=== PATIENT | female | born 1985 | race Caucasian/White ===

== ENCOUNTER → 2017-04-09 | Outpatient (CLI) | payer MEDICAID | LOC: FIMAGING 11:33 | PROVIDERS: ATTEND Advanced Practice Midwife | DX: Z34.92 Encounter for supervision of normal pregnancy, unspecified, second trimester (principal); Z3A.19 19 weeks gestation of pregnancy; Z87.42 Personal history of other diseases of the female genital tract ==

== ENCOUNTER 2017-08-29 11:19 | Inpatient (IN) | payer MEDICAID ==
[2017-08-29] MEDS ORDERED: EPSOM SALT 454 GM TP PRN (11:50)
[2017-08-29] MEDS ORDERED: OLIVE OIL 118 ML BTL MISC PRN (11:50)
[2017-08-29] MEDS ORDERED: MISOPROSTOL 200 MCG TAB PR PRN (11:50)
[2017-08-29] MEDS ORDERED: LR 1,000 ML IV PRN (11:50)
[2017-08-29] MEDS ORDERED: OXYTOCIN 20 UNIT in LR 1,000 ML IV PRN (11:50)
[2017-08-29] MEDS ORDERED: IBUPROFEN 600 MG TAB PO PRN (11:50)
--- NOTE | 2017-08-29 12:10 | PDMN ---
Medical Necessity Medical necessity: Pt meets IP criteria per MD; admit for labor & delivery; per order 08/29/17
[2017-08-29 12:33] LABS: PLATELET COUNT 144 10^3/uL (150-400)
--- NOTE | 2017-08-29 13:54 | PDGENHP ---
History and Physical History and Physical: HPI: Patient is a 31 yo G 5 P 3 that presents to L&D at 39.4 weeks EGA with c/o of SROM at approximately 10 am-mod amt clear fluid. She has had some continued leaking fluid, but not wearing pad. Underwear wet. No obvious fluid leaking visable. Her baby has been active, she denies painful contractions or vaginal bleeding. Transferred care to [facility] from the center due to insurance change. EDC: 09/01/2017 which is based on sure LMP: 11/25/2017 Her is complicated by: late transfer of care, h/o precipitous labors (<3 hours X2), h/o hemorrhoids (surgery X2) Review of Systems: Constitutional: Denies any fever, chills, or fatigue HEENT: denies any visual changes, difficulty swallowing, hearing loss Cardiovascular: Denies any chest pain, palpitations, leg swelling Respiratory: denies any cough, wheezing, or shortness of breathe GI: Denies any nausea, vomiting, diarrhea, constipation : denies any dysuria, urgency, frequency, vaginal bleeding Musculoskeletal: denies any muscle or bone pain Skin: denies any rashes Neuro: denies any headache, seizures, lightheadedness, dizziness, or loss of consciousness Psychiatric: denies any depression, anxiety, or SI/HI thoughts HISTORY: Previous OB history: - 3 previous SVDs - 2 were precipitous, the other was 5 hours. 1 TAB in 2005. Past medical history: h/o anxiety (not currently treated), h/o hemorrhoids ( surgery X2) Past surgical history: hemorrhoid surgeryX2, Bartholin cyst 2015 Medications: PNV Allergies (list reaction): NKDA LABS: Rh: O pos ABS: Neg Rubella: Immune HbsAg: NR HIV: NR VDRL: NR 1hr: 96 GC: Neg Chlamydia: Neg Pap: Normal -2016 GBS: neg BMI: (prepreg) 26 PHYSICAL EXAM: Constitutional: WN, A&Ox3 HEENT: normocephalic atraumatic, supple Heart: RRR, no murmur Chest: CTA-B Abdomen: Soft, nontender, gravid SVE: deferred. Sterile spec done to verify SROM - nitrazine pos, neg pooling, neg ferning. Amnisure positive. Extremities: sml lower ext edema, negative giovany's sign Neuro: grossly normal Psych: normal affect assessment: Reassuring FHTs, category 1- baseline 135 +accels, no decels, moderate variability Contractions: toco - irregular mild contractions patient is not aware of Assessment: 1) 31 yo G 5 P 3 with IUP@ 39.4 weeks EGA 2) SROM at 10 am 3) GBS neg 4) Cat 1 FHR tracing 5) Patient would like to wait to start pitocin to see if labor will start on it 's own Plan: 1) Patient given option to stay or discharge home. Would like to go home with precautions and instructions to return when she is feeling regular contractions , if noticing decreased movement, change in color of fluid (green), vaginal bleeding, fever. Verbalizes understanding of instructions and agrees with POC.
== END 2017-08-29 14:00 | disposition home or self-care (01) | DRG 782 ==
LOC: FLD 11:19
PROVIDERS: ADMIT Obstetrics & Gynecology; ATTEND Obstetrics & Gynecology
DX: O42.92 Full-term premature rupture of membranes, unspecified as to length of time between rupture and onset of labor (principal); Z87.59 Personal history of other complications of pregnancy, childbirth and the puerperium; Z3A.39 39 weeks gestation of pregnancy

== ENCOUNTER 2017-08-29 22:38 | Inpatient (IN) | payer MEDICAID ==
--- NOTE | 2017-08-29 23:43 | GHP ---
[f rep st] HISTORY AND PHYSICAL DATE OF ADMISSION: 08/29/2017 ADMITTING DIAGNOSIS: Intrauterine at 39-4/7 weeks' gestation with spontaneous rupture of t he membranes. HISTORY OF PRESENT ILLNESS: The patient is a 31-year-old 5, para 3-0-1-3, with a last menstr ual period of 11/25/2016, and an EDC of 09/01/2017, which was confirmed by ultrasound. She has had p renatal care with [facility] since transfer at 37 weeks. She had an insurance change and w ants to deliver at [facility] where she has delivered her other babies. She had the majority of her p renatal care at [facility], but had an insurance change and it was not going to be covered there and she had her first trimester care at [place]. Her significant risk factors are hist ory of rapid labor and significant history of hemorrhage. She has had 2 hemorrhoid surgeries in the past, and hemorrhoids are worsening in the . No other significant risk factors. Edda purvis initially had an episode of leakage of clear fluid at 10 a.m. She came into Labor and Deliver y because of her history of rapid deliveries. She was assessed, found to have positive rupture of me mbranes, but her cervix was not checked. She had a category 1 reactive tracing and irregular contrac tions, and patient opted to go home to anticipate increasing contractions. Over the last hour, she h as had increasing contractions, increasing in intensity, and minimal continued leakage of fluid. On examination, heart tones are in the 140s, reactive. She is having moderate variability, some e morro decels. Her cervix is 3 cm, 80%, -2, and she had a forebag, which I performed an amniotomy and she had clear fluid. Patient wishes to have expectant management of labor and natural labor. PAST OBSTETRICAL HISTORY: In 2005, she had an elective medical termination without complication. In November of 2011, she had a viable female, 6 pounds 3 ounces, vaginal delivery, 3 hours of labor. In [place] 2012, she had another viable female, 7 pounds 3 ounces, less than 3 hours of labor, and in J santi2014 another viable female, 7 pounds 12 ounces, 5 hours of labor, and this is her fifth pregna ncy. PAST GYNECOLOGICAL HISTORY: She had menarche at age 11, intervals every 28 days, length 7 days. Jenae e and regular last menstrual period in November 2016. Past gynecological history is significant for abno rmal Paps with a LEEP in 2010. She has had normal Paps since and term since. No other his tory of any STDs. PAST MEDICAL HISTORY: No significant past medical history. PAST SURGICAL HISTORY: [place] tooth extraction, 2 hemorrhoid surgeries, and a Bartholin cyst I and D in 2015. FAMILY HISTORY: Paternal grandfather of a myocardial infarction. Maternal grandmother and mate rnal grandfather have hypertension. Maternal grandmother has varicose veins. Her mother has asthma. Maternal grandmother has migraines, and maternal grandfather has diabetes. SOCIAL HISTORY: She is single, but in a relationship with a partner. She lives with him and her 3 d aughters. 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 She denies tobacco, alcohol, and drug u se. REVIEW OF SYSTEMS: Negative except for pertinent positives of above. OBJECTIVE: VITAL SIGNS: Afebrile. Vital signs are stable. 140s with early decels, moderate variab ility, category 1. Contractions every 3 minutes. Cervix 3, 80%, -2. AROM for forebag for clear flu id. ASSESSMENT AND PLAN: A 31-year-old 5, para 3-0-1-3, who is 39-4/7 weeks' gestation in active labor with spontaneous rupture of the membranes. Patient will have expectant labor management. Exp ect spontaneous vaginal delivery. /[id number]/MODL
[2017-08-29] MEDS ORDERED: OXYTOCIN 20 UNIT in LR 1,000 ML IV PRN (23:54)
[2017-08-29] MEDS ORDERED: TERBUTALINE SULFATE 1 MG/ML VIAL IV PRN (23:54)
[2017-08-29] MEDS ORDERED: EPSOM SALT 454 GM TP PRN (23:54)
[2017-08-29] MEDS ORDERED: OLIVE OIL 118 ML BTL MISC PRN (23:54)
[2017-08-29] MEDS ORDERED: LR 1,000 ML IV PRN (23:54)
[2017-08-29] MEDS ORDERED: MISOPROSTOL 200 MCG TAB PR PRN (23:54)
[2017-08-30] MEDS ORDERED: LIDOCAINE 1% 300 MG/30 ML SDV ONE (00:01)
[2017-08-30] MEDS ORDERED: OLIVE OIL 118 ML BTL ONE (00:01)
[2017-08-30] MEDS ORDERED: MISOPROSTOL 200 MCG TAB ONE (00:02)
[2017-08-30 00:25] LABS: PLATELET COUNT 147 10^3/uL (150-400)
[2017-08-30] MEDS ORDERED: PHENYLEPHRINE HCL 100 MCG/ML SYR IVP PRN ×2 (00:43→06:57)
[2017-08-30] MEDS ORDERED: NALOXONE HCL 0.4 MG/ML INJ IVP PRN ×3 (00:43→06:57)
[2017-08-30] MEDS ORDERED: ONDANSETRON 4 MG/2 ML VIAL IVP PRN ×3 (00:43→06:57)
[2017-08-30] MEDS ORDERED: BUPIVACAINE 0.25% 30 ML SDV ONE (00:54)
[2017-08-30] MEDS ORDERED: PHENYLEPHRINE HCL 100 MCG/ML SYR ONE (00:54)
[2017-08-30] MEDS ORDERED: fentaNYL 100 MCG/2 ML INJ ONE ×2 (00:55→05:17)
[2017-08-30] MEDS ORDERED: fentaNYL 200 MCG, BUPIVACAINE 0.5% 20 ML in NS 100 ML EP SCH (01:00)
[2017-08-30] MEDS ORDERED: LR 500 ML IV SCH (01:00)
[2017-08-30] MEDS ORDERED: fentaNYL 2MCG/ML/BUP 0.1% RTU 100 ML EP SCH (01:00)
--- NOTE | 2017-08-30 01:38 | PREANESOB ---
Obstetric Pre-Anesthesia Info - General Info Proposed Procedure: labor - Info Status: Full Term Monitors: External FHR Pattern: Reassuring - Labor Status Labor Epidural: Proposed Anesthesia ROS: negative review of systems Allergies/Adverse Reactions: Allergy/AdvReac Type Severity Reaction Status Date / Time No Known Allergies Allergy Unverified 12/03/11 06:37 Home Medications: Medication Instructions Recorded 1 tab PO DAILY 04/14/13 Herbals/Supplements -Info Only 08/29/17 Visit Medications: Generic Name Dose Route Start Last Admin Trade Name Freq PRN Reason Stop Dose Admin Diphenhydramine HCl 25 - 50 mg 08/30/17 00:43 Benadryl Injection IVP 02/26/18 00:42 Q6HRS PRN Itching Ephedrine Sulfate 10 mg 08/30/17 00:43 Ephedrine Sulfate IV 02/26/18 00:42 .Q2M PRN Hypotension Lactated Ringer's 1,000 mls @ 0 mls/hr 08/29/17 23:54 Lr IV 08/30/17 23:53 PRN PRN SEE PROTOCOL CONDITIONS Protocol Per Protocol Oxytocin 20 unit/ Lactated 1,002 mls @ 150 mls/hr 08/29/17 23:54 Ringer's IV PRN PRN Post- bleeding Lactated Ringer's 500 mls @ 0 mls/hr 08/30/17 01:00 Lr IV 02/26/18 00:59 CONT PATRICK As Directed Fentanyl 200 mcg/ Bupivacaine 100 mls @ 0 mls/hr 08/30/17 01:00 HCl 20 ml/ Sodium Chloride EP 09/09/17 00:59 CONT PATRICK Protocol As Directed Ibuprofen 600 mg 08/29/17 23:54 Motrin PO 02/25/18 23:53 Q6HRS PRN post , inflammation Magnesium Sulfate 454 gm 08/29/17 23:54 Epsom Salt TP 02/25/18 23:53 Q1H PRN perineal discomfort Misoprostol 800 - 1,000 mcg 08/29/17 23:54 Cytotec DC ONCE PRN Vaginal Atony/Bleeding Naloxone HCl 0.4 mg 08/30/17 00:43 Narcan IVP 02/26/18 00:42 PRN PRN Respiratory depression [place] Oil 118 ml 08/29/17 23:54 Sweet Oil MISC 02/25/18 23:53 ONCE PRN perineal massage Ondansetron HCl 4 mg 08/30/17 00:43 Zofran IVP 08/31/17 00:42 Q4HRS PRN Nausea/Vomiting, Can't Take PO Phenylephrine HCl 100 mcg 08/30/17 00:43 Neosynephrine IVP 02/26/18 00:42 .Q2M PRN Hypotension Terbutaline Sulfate 0.25 mg 08/29/17 23:54 Brethine IV 02/25/18 23:53 ONCE PRN Tachysystole Discontinued Medications Generic Name Dose Route Start Last Admin Trade Name Freq PRN Reason Stop Dose Admin Bupivacaine HCl Confirm 08/30/17 00:54 Sensorcaine 0.25% Sdv Administered 08/30/17 00:55 Dose 30 ml .ROUTE .STK-MED ONE Fentanyl Confirm 08/30/17 00:55 Sublimaze Administered 08/30/17 00:56 Dose 100 mcg .ROUTE .STK-MED ONE Lidocaine HCl Confirm 08/30/17 00:01 Lidocaine Hcl 1% Administered 08/30/17 00:02 Dose 300 mg .ROUTE .STK-MED ONE Misoprostol Confirm 08/30/17 00:02 Cytotec Administered 08/30/17 00:03 Dose 1,000 mcg .ROUTE .STK-MED ONE [place] Oil Confirm 08/30/17 00:01 Sweet Oil Administered 08/30/17 00:02 Dose 118 ml .ROUTE .STK-MED ONE Phenylephrine HCl Confirm 08/30/17 00:54 Neosynephrine Administered 08/30/17 00:55 Dose 1,000 mcg .ROUTE .STK-MED ONE - Anesthesia History Response to Local Anesthetics: Normal Anesthesia & Operative History: No Prior Problems Family Anesthesia History: Negative - Social History Substance Use/Abuse: Denies - Focused Exam Neck exam: increased neck circumference Mallampati Score: Class 2 Mouth exam: normal dental/mouth exam Pulmonary: no respiratory distress Cardiovascular: regular rate and rhythym Labs: 08/29/17 00:05 Patient ABO/Rh O POSITIVE 08/30/17 00:05 - Plan Anesthetic Plan: zurdo Consent Signed and on Chart: Yes Patient/Guardian Understands and Agrees to Plan: Yes Urgent/Emergent Case: Shannon layne completed preop but documented later for safe timely pt care
--- NOTE | 2017-08-30 02:05 | OBPROG ---
Labor Progress Note Assessment/Plan: Assessment: 31 y/o @ 39 5/7 weeks with SROM in active labor Plan: Will allow baby to passively descend and patient to rest. Re check when she feels the urge to push. status reassuring. 08/30/17 02:04 Subjective/Intrapartum Course: 08/30/17 02:02 Pt comfortable with her epidural now. Objective: 08/29/17 00:05 Patient ABO/Rh O POSITIVE 08/30/17 00:05 - SVE Dilation (cm): 9 Effacement (%): 90 Station: 0 Membranes: AROM Amniotic Fluid Color: Clear - Contraction Pattern Assessment Current Contraction Pattern: Regular (Q 2-3) - FHR Assessment Castellano FHR (bpm): 140 FHR Pattern Variability: Moderate FHR Category: 1 - Procedures Non-surgical Procedures: Amniotomy - AP Antepartum Course: 08/30/17 02:03 Transfer of care @ 37 weeks, PNC @ [facility], H/o precipitous labor, Hemorrhoid ICD10 Worksheet Patient Problems: Problems Problem Status Onset (normal spontaneous vaginal delivery) Acute
[2017-08-30] MEDS ORDERED: FAMOTIDINE 20 MG/NACL/50 ML BAG IV ONE (04:45)
[2017-08-30] MEDS ORDERED: PHENYLEPHRINE 10 MG/ML SDV ONE (05:15)
[2017-08-30] MEDS ORDERED: LIDOCAINE 2% 5 ML SDV ONE ×2 (05:16)
[2017-08-30] MEDS ORDERED: LIDO/EPI 2% **for epidural** 20 ML SDV ONE (05:16)
[2017-08-30] MEDS ORDERED: morphINE PF 5 MG/10 ML INJ ONE (05:17)
[2017-08-30] MEDS ORDERED: OXYTOCIN 100 UNITS/10 ML VIAL ONE (05:17)
[2017-08-30] MEDS ORDERED: CEFAZOLIN 1 GM/DEXTROSE/50 ML BAG IV ONE (05:27)
[2017-08-30] MEDS ORDERED: ceFAZolin 2 GM in NS 100 ML IV ONE (05:28)
[2017-08-30] MEDS ORDERED: ceFAZolin 2 GM/SWFI 2 GM/20 ML SYR IVP ONE (06:00)
[2017-08-30] MEDS ORDERED: ONDANSETRON 4 MG/2 ML VIAL ONE (06:38)
[2017-08-30] MEDS ORDERED: PROMETHAZINE HCL 25 MG/ML INJ IVP PRN (06:49)
[2017-08-30] MEDS ORDERED: ACETAMINOPHEN 325 MG TAB PO PRN (06:49)
[2017-08-30] MEDS ORDERED: DOCUSATE SODIUM 100 MG CAP PO PRN (06:49)
--- NOTE | 2017-08-30 06:54 | OBDEL ---
Info Type: Primary Presentation at Delivery: Face L&D Analgesia/Anesthesia Type: Epidural GBS+: No - Infant Care Provider Electric Wheelchair Repairer/REPULPING SUPERVISOR: Nkechi Sims - Hospital Course Intrapartum: 08/30/17 02:02 Pt comfortable with her epidural now. Indications for Delivery: Spontaneous Labor, SROM (persistent face presentation , arrest of descent) Vaginal Delivery - Labor and Delivery Onset of Contractions Date: 08/29/17 Onset of Contractions Time: 22:00 Amniotic Fluid Color: Clear Non-surgical Procedures: Amniotomy Cord Gases: Cord Gases Cord Blood PCO2 84.5 mmHg (37-60) H 08/30/17 06:04 Cord Base Excess -24.3 mEq/L (-13.6--3.2) L 08/30/17 06:04 Cord ABG pH 6.89 (7.10-7.37) L 08/30/17 06:04 Cord VBG pH 6.97 (7.20-7.42) L 08/30/17 06:04 Operative Report - Delivery Pre-op Diagnoses: IUP @ 39 weeks, SROM, persistent face presentation, arrest of descent Post-op Diagnoses: same History of Prior Section: No Number of Prior Sections: 0 Nulliparous Prior to Delivery: No Indications for Current Section: Other (Specify) (persistent face presentation) Procedure: Unscheduled Surgeon: Aura Collado Annual Giving Director: Gertrudis Edmondson Anesthesiologist: Ariel Marquez Complications: Other (Specify) (severely bruised face and forehead abrasions, baby is in NICU) Specimen(s)/Path: Placenta IV Fluid (ml): 2,500 EBL: 800 Cord Gases: Cord Gases Cord Blood PCO2 84.5 mmHg (37-60) H 08/30/17 06:04 Cord Base Excess -24.3 mEq/L (-13.6--3.2) L 08/30/17 06:04 Cord ABG pH 6.89 (7.10-7.37) L 08/30/17 06:04 Cord VBG pH 6.97 (7.20-7.42) L 08/30/17 06:04 Assissted Delivery Assisted Delivery Type: Vacuum Station: +2 Pop offs (Total): 1 Pulls (Total): 5 Assisted Delivery Comment: persistent face presentation, kiwi vacuum placed on baby's vertex in attempt to encourage baby to flex head, and descend past pubic symphysis [place] Data GABBIE: 08/31/17 Gestational Age: 39 week(s) and 6 day(s) Castellano Delivery Date: 08/30/17 Delivery Time: 05:57 Sex of Infant: Female [place] Weight (gm): 3432 g Score (1 Min): 1 Score (5 Min): 5 Score (10 Min): 7 ICD10 Worksheet Patient Problems: Problems Problem Status Onset Delivery by section of full-term infant Acute Face presentation of fetus Acute (normal spontaneous vaginal delivery) Acute - ICD10 Problem Qualifiers (1) Face presentation of fetus Qualifiers: Fetus number: single or unspecified fetus Qualified Code(s): O32.3XX0 - Maternal care for face, brow and chin presentation, not applicable or unspecified (2) Delivery by section of full-term infant
[2017-08-30] MEDS ORDERED: HYDROCODONE/APAP 5/325 TAB PO PRN (06:57)
[2017-08-30] MEDS ORDERED: HYDROmorphONE/DILAUDID 2 MG/ML INJ IVP PRN (06:57)
--- NOTE | 2017-08-30 07:02 | POSTANESTH ---
Post Anesthetic Evaluation Cardiovascular Status: Normal, Stable Respiratory Status: Normal, Stable Level of Consciousness/Mental Status: Can Participate in Eval Pain Control: Adequate, Prn Tx Ordered Nausea/Vomiting Control: Adequate, Prn Tx Ordered Complications Possibly Related to Anesthesia: None Noted
[2017-08-30] MEDS ORDERED: MAGNESIUM HYDROXIDE 30 ML UDCUP PO PRN (07:04)
[2017-08-30] MEDS ORDERED: POLYETHYLENE GLYCOL 3350 17 GM PKT PO PRN (07:04)
[2017-08-30] MEDS ORDERED: BISACODYL 10 MG SUPP PR PRN (07:04)
[2017-08-30] MEDS ORDERED: LACTULOSE 20 GM/30 ML UDCUP PO PRN (07:04)
--- NOTE | 2017-08-30 07:39 | GOP ---
[f rep st] OPERATIVE REPORT DATE OF OPERATION: 08/30/2017 SURGEON: Aura Collado MD MANAGER FINE: Gai Edmondson, Certified Nurse assistant professor of nursing. ANESTHESIA: Epidural anesthesia. ANESTHESIOLOGIST: Ariel Maruqez MD PREOPERATIVE DIAGNOSIS: Intrauterine at 39 and 5/7 weeks' gestation with persistent face p resentation and arrest of descent. POSTOPERATIVE DIAGNOSIS: Intrauterine at 39 and 5/7 weeks' gestation with persistent face presentation and arrest of descent. PROCEDURE PERFORMED: Primary lower transverse section. FINDINGS: Viable female with of 1, 5, and 7 and weight of 3432 g. ESTIMATED BLOOD LOSS: 800 cc INDICATIONS: Claudia is a 31-year-old 5, para 3-0-1-3, with an EDC of 09/01/2017, confirmed by ultrasound, who recently transferred to [facility] at 37 weeks. She presented with sponta neous rupture of membranes at 10 a.m. on 08/29. She declined augmentation of labor at that time. Ori branch re-presented at 10 p.m. and her cervix was 3 cm, 80%, and she had a 4 bag of water that was AROM fo r augmentation. She was admitted for labor management. The patient did well with spontaneous progre ssion, received an epidural for pain control, and progressed to fully dilated. She started pushing a nd it was recognized that the patient was in face presentation with mentum anterior. Because the pat ient had 3 prior successful vaginal deliveries and felt that she had good pelvic room, we continued p ushing efforts to attempt to see if baby would flex the head or deliver with a face. After approxima tely 45 minutes of good pushing efforts without significant descent, I verbally counseled the patient for an attempted vacuum extraction because I could place the kiwi vacuum on the baby's vertex to att empt to help flex the head and facilitate delivery. The patient agreed to this and I placed the kiwi vacuum on the baby's vertex using care to avoid the face and help to flex the head and pull with 5 p ushes. The baby did flex the head more, however, the head did not descend again past the pubic symph ysis. We tried 5 pulls with 1 pop-off. After that was unsuccessful, we decided to proceed with oper ative delivery for persistent face presentation and arrest of descent. The patient was counseled for the procedure and she understood the risks and benefits. The risks including bleeding, infection, d amage to internal organs, uterus, tubes, ovaries, bowel, bladder, nerves, blood vessels, ureters, ris k of injury, risk of hemorrhage requiring blood transfusion, hysterectomy, or . She under stood these risks and benefits and agreed to proceed. DESCRIPTION OF PROCEDURE: The patient was taken to the operating room where her epidural was dosed a nd found to be adequate. She was prepped and draped in the dorsal supine position with a leftward ti lt and a Farley catheter was replaced in her bladder. After adequate anesthesia was assured, a transv erse skin incision was made with a scalpel and the incision was carried down to the underlying layer of fascia with the Bovie. The fascia was incised midline and the fascial incision was extended later ally with Elizondo scissors. The superior aspect of the fascial incision was grasped with Sheeba clamps, elevated, and the rectus muscles were dissected off sharply. The rectus muscles were in t he midline and peritoneum was entered sharply. The peritoneal incision was extended superiorly and i nferiorly with good visualization of the bladder. A bladder blade was inserted and the vesicouterine peritoneum was grasped with the pickups and entered sharply with Metzenbaum scissors. The incision was extended laterally and bladder flap was created digitally. The uterus was incised with a knife a nd there was clear amniotic fluid upon entry of the uterine cavity. The baby was in persistent face presentation and the head was flexed and the baby was delivered atraumatically. The cord was clamped and cut. The infant was handed off to the waiting nurse practitioner. Cord blood gas as w ell as cord blood were sent. The placenta was removed manually and the uterus was exteriorized and c leared of all clots and debris. The uterine incision was repaired with 0 Vicryl in a running locked fashion. Second imbricating layer of suture was performed with 0 Vicryl. Small areas of bleeding we re also sutured with 0 Vicryl and good hemostasis was obtained. The uterus was returned to the abdom en. Gutters were cleared of all clots and debris. Reinspection of the uterine incision again assure d hemostasis. The rectus muscles were approximated with 2-0 Vicryl in an inverted mattress fashion. The fascia was closed with #1 Vicryl in a running fashion. Subcutaneous layer was closed with 2-0 V icryl and skin was closed with 4-0 Vicryl. The patient tolerated the procedure well. INSTRUMENT COUNT: Sponge, lap, needle, and instrument counts were correct x3. DISPOSITION: The patient went to the recovery room in good condition. FLUIDS REPLACED: 2500 cc URINE OUTPUT: 200 cc /[id number]/MODL
[2017-08-30] MEDS ORDERED: KETOROLAC 30 MG/1 ML SDV ONE (08:18)
[2017-08-30] MEDS: KETOROLAC 30 MG/1 ML SDV IVP PRN ×3 (08:25→20:55)
--- NOTE | 2017-08-30 11:00 | OBPP ---
Progress Note Assessment/Plan: Assessment:31 yo [id number] about 4 hours post op from primary LTCS due to face presentation. Significant labial edema, R > L, does not appear to be a hematoma. Plan: Continue routine post op cares. Will observe and recheck labia in a bit. 08/30/17 10:56 Subjective/ Course: 08/30/17 11:00 Pt is doing well, is resting comfortably though labia are uncomfortable. Is in good spirits despite her baby just being transferred to [facility]. Objective: 08/29/17 00:05 Patient ABO/Rh O POSITIVE 08/30/17 00:05 Temp Pulse Resp BP Pulse Ox 36.8 C 87 20 110/67 2 L 08/30/17 09:30 08/30/17 09:30 08/30/17 09:30 08/30/17 09:30 08/30/17 09:30 gen - pleasant, NAD abd - soft, fundus firm at umbilicus dressing - c/d/i vulva - significant edema, with R labia 2x size of left, does not extend in to her vagina, a little more firm posteriorly ext - calves nt, 1+ edema Uterine Position/Fundal Height: At Umbilicus Uterine Tone: Firm
[2017-08-30] MEDS: SENNOSIDES/DOCUSATE SODIUM TAB PO SCH ×2 (11:08→20:56)
--- NOTE | 2017-08-30 16:25 | PDMN ---
Medical Necessity Medical necessity: Pt meets IP criteria per MD; admit for labor & delivery; per H&P & order 08/29/17
[2017-08-30] MEDS: IRON POLYSAC/IRON HEME 28 MG TAB PO SCH (20:55)
[2017-08-30] MEDS: HYDROCODONE/APAP 5/325 TAB PO PRN (21:47)
--- NOTE | 2017-08-30 22:28 | OBPP ---
Progress Note Assessment/Plan: Assessment:31 yo [id number] 4 about 4 hours post op from primary LTCS due to face presentation. Significant labial edema, R > L, does not appear to be a hematoma. Plan: Continue routine post op cares. Will observe and recheck labia in a bit. 08/30/17 10:56 08/30/17 22:29 Assessment: 31 yo [id number] approximately 16 hours post op from primary LTCS - due to face presentation. Labial edema significantly improved. Baby doing well in NICU with cooling at [facility]. Plan: Continue routine postop cares. Will leave Farley catheter in overnight, but plan to dc in AM, and get pt ambulating. Anticipate dc to home on Friday 09/01. Subjective/ Course: Doing well, was able to get some rest today. Labial discomfort has decreased significantly. Is in good spirits - has been told her baby girl is doing well. Will be receiving head cooling until 09/02. Has lots of family members who are spending time with her at [facility]. Has been out of bed only to stand today. Was not lightheaded with that. 08/30/17 11:00 Pt is doing well, is resting comfortably though labia are uncomfortable. Is in good spirits despite her baby just being transferred to [facility]. 08/30/17 22:26 Objective: 08/29/17 00:05 Patient ABO/Rh O POSITIVE 08/30/17 00:05 Temp Pulse Resp BP Pulse Ox 36.6 C 89 16 95/58 L 94 08/30/17 20:00 08/30/17 20:00 08/30/17 20:00 08/30/17 20:00 08/30/17 20:00 gen - pleasant, NAD abd - soft, fundus firm and NT u-2 vulva - edema still significant, though nearly symmetric now and approximately 60% small than this morning, and quite soft. Farley catheter still in place. ext = SCDs in place and running, no calf tenderness. Uterine Position/Fundal Height: Umbilicus -2 Uterine Tone: Firm
[2017-08-31] MEDS: HYDROCODONE/APAP 5/325 TAB PO PRN ×5 (02:59→22:37)
[2017-08-31] MEDS: IBUPROFEN 600 MG TAB PO PRN ×4 (02:59→21:19)
[2017-08-31] MEDS: SENNOSIDES/DOCUSATE SODIUM TAB PO SCH ×2 (08:21→21:20)
[2017-08-31] MEDS: IRON POLYSAC/IRON HEME 28 MG TAB PO SCH ×2 (08:21→21:20)
--- NOTE | 2017-08-31 09:09 | OBPP ---
Progress Note Assessment/Plan: Assessment:nipples intact vs wnl anemic iron started ff@u incision well approximated / bandage off/ no ss of infection passing gas mccarthy remains in place will dc today pain well managed labial swelling significantly diminished Plan:PO day 1 expectant management/ encouraged ambulation 08/31/17 09:06 Subjective/ Course: Doing well, was able to get some rest today. Labial discomfort has decreased significantly. Is in good spirits - has been told her baby girl is doing well. Will be receiving head cooling until Mon 09/02. Has lots of family members who are spending time with her at [facility]. Has been out of bed only to stand today. Was not lightheaded with that. 08/30/17 11:00 Pt is doing well, is resting comfortably though labia are uncomfortable. Is in good spirits despite her baby just being transferred to [facility]. 08/30/17 22:26 08/31/17 09:06 Doing well. Denies uncontrolled jewel. Will dc mccarthy today. Passing gas. Pumping Objective: 08/31/17 06:00 Patient ABO/Rh O POSITIVE 08/30/17 00:05 Temp Pulse Resp BP Pulse Ox 36.2 C 85 15 101/66 100 08/31/17 08:46 08/31/17 08:46 08/31/17 08:46 08/31/17 08:46 08/31/17 08:46 Uterine Position/Fundal Height: At Umbilicus Uterine Tone: Firm Physical Exam - Physical Exam General Appearance: WD/WN, alert, no apparent distress Respiratory: chest non-tender, lungs clear Cardiac/Chest: regular rate, rhythm Abdomen: hypoactive bowel sounds Extremities: normal range of motion, Andrade's sign (negative bilaterally) DTR- Lower Extremities: Knee (R): 1+, Knee (L): 1+ (no clonus) Skin: normal color, warm/dry Neuro/Psych: no motor/sensory deficits, alert, normal mood/affect, oriented x 3
[2017-08-31] MEDS: SIMETHICONE 80 MG TAB CHEW PO PRN (21:21)
[2017-09-01] MEDS: HYDROCODONE/APAP 5/325 TAB PO PRN ×5 (02:48→22:33)
[2017-09-01] MEDS: IBUPROFEN 600 MG TAB PO PRN ×4 (03:48→22:33)
[2017-09-01] MEDS: SIMETHICONE 80 MG TAB CHEW PO PRN (09:04)
[2017-09-01] MEDS: IRON POLYSAC/IRON HEME 28 MG TAB PO SCH ×2 (09:04→21:18)
[2017-09-01] MEDS: SENNOSIDES/DOCUSATE SODIUM TAB PO SCH ×2 (09:04→21:18)
[2017-09-01 09:21] VITALS: RESP 16; O2SAT 98
--- NOTE | 2017-09-01 11:01 | OBPP ---
Progress Note Assessment/Plan: Assessment:31 yo [id number] 4 about 4 hours post op from primary LTCS due to face presentation. Significant labial edema, R > L, does not appear to be a hematoma. Plan: Continue routine post op cares. Will observe and recheck labia in a bit. 08/30/17 10:56 08/30/17 22:29 Assessment: 31 yo [id number] approximately 16 hours post op from primary LTCS - due to face presentation. Labial edema significantly improved. Baby doing well in NICU with cooling at [facility]. Plan: Continue routine postop cares. Will leave Mccarthy catheter in overnight, but plan to dc in AM, and get pt ambulating. Anticipate dc to home on Friday 09/01. 09/01/17 11:05 Assessment: POD#2 s/p LTCS c/b significant labial edema - which has now resolved and baby to [facility]. Plan: dc home tomorrow as still has significant fatigue and moving slowly. Will get more rest here than at home and her baby is having head cooling until tomorrow. Subjective/ Course: Doing well, was able to get some rest today. Labial discomfort has decreased significantly. Is in good spirits - has been told her baby girl is doing well. Will be receiving head cooling until 09/02. Has lots of family members who are spending time with her at [facility]. Has been out of bed only to stand today. Was not lightheaded with that. 08/30/17 11:00 Pt is doing well, is resting comfortably though labia are uncomfortable. Is in good spirits despite her baby just being transferred to [facility]. 08/30/17 22:26 08/31/17 09:06 Doing well. Denies uncontrolled jewel. Will dc mccarthy today. Passing gas. Pumping 09/01/17 11:03 Doing well. Labia with minimal discomfort. Has had a BM. Arden reg diet. Ambulating slowly without difficulty. Pumping going well. Voiding without difficulty. Objective: 08/31/17 06:00 Patient ABO/Rh O POSITIVE 08/30/17 00:05 Temp Pulse Resp BP Pulse Ox 36.8 C 96 16 115/55 L 98 09/01/17 09:19 09/01/17 09:19 09/01/17 09:19 09/01/17 09:19 09/01/17 09:19 gen - pleasant, NAD cv - RRR chest - CTAB abd - soft, + NABS, inc - c/d/i, steristrips intact ext - 1+ edema, no calf tenderness vulva - edema nearly completely resolved Uterine Position/Fundal Height: Umbilicus -3 Uterine Tone: Firm
[2017-09-01 14:10] VITALS: BP 114/60; PULSE 104; TEMP 97.1
[2017-09-02] MEDS: HYDROCODONE/APAP 5/325 TAB PO PRN ×3 (02:42→13:18)
[2017-09-02] MEDS: IBUPROFEN 600 MG TAB PO PRN ×2 (04:33→12:03)
[2017-09-02] MEDS: SENNOSIDES/DOCUSATE SODIUM TAB PO SCH (08:28)
[2017-09-02] MEDS: IRON POLYSAC/IRON HEME 28 MG TAB PO SCH (08:28)
--- NOTE | 2017-09-02 09:42 | OBPP ---
Progress Note Assessment/Plan: Assessment:nipples intact pumping without difficulty vs wnl anemic iron started ff@u incision well approximated / bandage off/ no ss of infection passing gas voiding without difficulty pain well managed labial swelling resolved Plan:PO day 3 expectant management. Discharge to home with instructions fu 2 weeks 4 and 6 weeks. pain management, depression, pelvic rest, exercise walking , no driving x 2 weeks, pericare, pumping and , bleeding patterns, ss infection, rest verbalized understanding of all of the above 08/31/17 09:06 09/02/17 09:39 Subjective/ Course: Doing well, was able to get some rest today. Labial discomfort has decreased significantly. Is in good spirits - has been told her baby girl is doing well. Will be receiving head cooling until 09/02. Has lots of family members who are spending time with her at [facility]. Has been out of bed only to stand today. Was not lightheaded with that. 08/30/17 11:00 Pt is doing well, is resting comfortably though labia are uncomfortable. Is in good spirits despite her baby just being transferred to [facility]. 08/30/17 22:26 08/31/17 09:06 Doing well. Denies uncontrolled jewel. Will dc mccarthy today. Passing gas. Pumping 09/01/17 11:03 Doing well. Labia with minimal discomfort. Has had a BM. Arden reg diet. Ambulating slowly without difficulty. Pumping going well. Voiding without difficulty. 09/02/17 09:38 Doing well denies difficulties eager to see her baby ready to be discharged.PAssing gas. Able to void without difficulty. Resolved perineal swelling Objective: 08/31/17 06:00 Patient ABO/Rh O POSITIVE 08/30/17 00:05 Temp Pulse Resp BP Pulse Ox 36.2 C 104 H 16 114/60 98 09/01/17 12:00 09/01/17 12:00 09/01/17 12:00 09/01/17 12:00 09/01/17 09:19 Uterine Position/Fundal Height: At Umbilicus Uterine Tone: Firm Physical Exam - Physical Exam General Appearance: WD/WN, alert, no apparent distress Respiratory: chest non-tender, lungs clear, normal breath sounds Cardiac/Chest: normal peripheral pulses, regular rate, rhythm Abdomen: normal bowel sounds Extremities: normal range of motion, Andrade's sign (negative bilateally) DTR- Lower Extremities: Knee (R): 1+, Knee (L): 1+ (no clonus) Skin: normal color, warm/dry Neuro/Psych: no motor/sensory deficits, alert, normal mood/affect
--- NOTE | 2017-09-02 09:46 | OBGCSDC ---
General Delivery Information - General Info : 5 Para: 4 Abortions: 1 Type: Primary L&D Analgesia/Anesthesia Type: Epidural Admission Date: 08/29/17 Labs: Patient ABO/Rh O POSITIVE 08/30/17 00:05 Hct 21.4 % (38.0-47.0) L D 08/31/17 06:00 - Hospital Course Antepartum: 08/30/17 02:03 Transfer of care @ 37 weeks, PNC @ [facility], H/o precipitous labor, Hemorrhoid Intrapartum: 08/30/17 02:02 Pt comfortable with her epidural now. : Doing well, was able to get some rest today. Labial discomfort has decreased significantly. Is in good spirits - has been told her baby girl is doing well. Will be receiving head cooling until 09/02. Has lots of family members who are spending time with her at [facility]. Has been out of bed only to stand today. Was not lightheaded with that. 08/30/17 11:00 Pt is doing well, is resting comfortably though labia are uncomfortable. Is in good spirits despite her baby just being transferred to [facility]. 08/30/17 22:26 08/31/17 09:06 Doing well. Denies uncontrolled jewel. Will dc mccarthy today. Passing gas. Pumping 09/01/17 11:03 Doing well. Labia with minimal discomfort. Has had a BM. Arden reg diet. Ambulating slowly without difficulty. Pumping going well. Voiding without difficulty. 09/02/17 09:38 Doing well denies difficulties eager to see her baby ready to be discharged.PAssing gas. Able to void without difficulty. Resolved perineal swelling Vaginal - Diagnosis Amniotic Fluid Color: Clear - Procedures Assisted Delivery Type: Vacuum Non-surgical Procedures: Amniotomy - Delivery Providers Surgeon: Aura Collado Grinder Dresser: Gertrudis Edmondson Anesthesiologist: Ariel Marquez - Delivery Number of Prior Sections: 0 Indications for Current Section: Other (Specify) (persistent face presentation) Non-surgical Procedures: Amniotomy Surgical Procedures: Unscheduled Intra-op Complications: Other (Specify) (severely bruised face and forehead abrasions, baby is in NICU) EBL: 800 Data GBABIE: 08/31/17 Gestational Age: 40 week(s) and 2 day(s) [place] Delivery Date: 08/30/17 Delivery Time: 05:57 Sex of : Female [place] Weight (gm): 3432 g Score (1 Min): 1 Score (5 Min): 5 Score (10 Min): 7 Discharge Information - Discharge Information Prescriptions: Hydrocodone/APAP 5/325 [[place] 5/325 (*)] 1 - 2 tab PO Q4HRS PRN #30 tab PRN Reason: Pain, Moderate Ibuprofen [Motrin (*)] 600 mg PO Q6HRS PRN #30 tab PRN Reason: post , inflammation Iron Polysacch/Iron Heme Polyp [Bifera] 28 mg PO BID #90 tab Condition: Good
== END 2017-09-02 13:30 | disposition home or self-care (01) | DRG 765 ==
LOC: FLD 22:38 → FOB 08-30 09:51
PROVIDERS: ADMIT Obstetrics & Gynecology; ATTEND Obstetrics & Gynecology
PROC: 10D00Z1 Extraction of Products of Conception, Low, Open Approach (ICD-10-PCS; principal; 2017-08-30)
DX: O32.3XX0 Maternal care for face, brow and chin presentation, not applicable or unspecified (principal); O32.4XX0 Maternal care for high head at term, not applicable or unspecified; O22.43 Hemorrhoids in pregnancy, third trimester; Z37.0 Single live birth; Z3A.40 40 weeks gestation of pregnancy
CPT/HCPCS: G0463; J0690; J1885; J2274; J2370; J2405; J2590; J3010

== ENCOUNTER → 2017-09-16 | Outpatient (CLI) | payer MEDICAID | LOC: FLACT 13:09 | PROVIDERS: ATTEND Hospitalist | DX: O92.5 Suppressed lactation (principal) | CPT/HCPCS: G0463 ==